=== PATIENT | female | born 1990 | race Caucasian/White ===

== ENCOUNTER 2017-10-26 20:34 | Inpatient (IN) ==
[2017-10-26] MEDS: LACTATED RINGERS 1,000 ML IV SCH ×2 (20:45→21:28)
[2017-10-26] MEDS ORDERED: ACETAMINOPHEN 325 MG TABLET PO PRN (20:47)
[2017-10-26] MEDS ORDERED: MEPERIDINE 50 MG/1 ML VIAL IV PRN (20:47)
[2017-10-26] MEDS ORDERED: ONDANSETRON 4 MG/2 ML VIAL IV PRN (20:47)
[2017-10-26] MEDS ORDERED: CITRIC ACID/SODIUM CITRATE 30 ML UDCUP PO ONE (20:48)
[2017-10-26] MEDS ORDERED: ePHEDrine 50 MG/ML AMP IV PRN (20:48)
[2017-10-26] MEDS ORDERED: FAMOTIDINE 20 MG/2 ML VIAL IV ONE (20:48)
[2017-10-26] MEDS ORDERED: OXYTOCIN/LR 20 UNIT/1,000 ML BAG IV SCH (21:00)
[2017-10-26 21:11] LABS: Basophils % 0.2 % (0.0-0.8); Eosinophils # 0.1 10*3/uL (0.0-0.87); Eosinophils % 0.7 % (0.00-10.9); Hematocrit 31.5 VOL% (35.7-47.0); Hemoglobin 10.7 GM/DL (12.0-16.0); Immature Granulocytes % 1.5 %; Immature Granulocytes Absolute 0.16 #; Lymphocytes # 1.4 10*3/uL (1.4-4.0); Lymphocytes % 13.1 % (21.3-54.2); Mean Corpuscular Hemoglobin 32 PG (27-34); Mean Corpuscular Volume 93.8 FL (87-102); Mean Platelet Volume 10.6 FL (9.6-12.0); Monocytes # 0.6 10*3/uL (0.11-0.8); Neutrophils # 8.4 10*3/uL (1.4-7.4); Neutrophils % 78.5 % (38.7-73.9); Platelet Count 161 T/CUMM (130-400); Red Blood Count 3.36 MC/CUMM (3.8-5.5); Red Cell Distribution Width 13.7 % (9.3-17.3); White Blood Count 10.6 T/CUMM (4-12)
[2017-10-26] MEDS ORDERED: fentaNYL 2 MCG/ROPIV 0.2% EPID 150 ML EPIDURAL SCH (21:30)
[2017-10-26 21:40] LABS: Alanine Aminotransferase 11 U/L (13-56); Albumin 2.4 G/DL (3.4-5.0); Alkaline Phosphatase 92 U/L (45-117); Aspartate Amino Transferase 13 U/L (0-37); Bilirubin,Total < 0.39 MG/DL (0.2-1.0); Blood Urea Nitrogen 9 MG/DL (7-18); Calcium 8.4 MG/DL (8.5-10.1); Glucose 102 MG/DL (74-106); Osmolality,Calculated 279.3 MOS/KG (273-304); Potassium 3.8 MMOL/L (3.5-5.1); Sodium 141 MMOL/L (136-145); Total Protein 5.3 G/DL (6.4-8.3)
[2017-10-26 22:45] LABS: Apearance,Urine Slightly Hazy (Clear); Bilirubin,Urine Negative (Negative); Blood, Urine Negative (Negative); Glucose,Urine (UA) Negative (Negative); Ketones,Urine Negative (Negative); Nitrite,Urine Negative (Negative); Protein,Urine Negative; Squamous Epithelial Cell,Urine Occasional /HPF (0-10); Urine Color Yellow (Yellow); Urine Specific Gravity 1.009 (1.001-1.035); Urine Urobilinogen < 2.0 EU/DL (0.2-1.0); WBC,Urine 1 /HPF (0-6)
[2017-10-27] MEDS ORDERED: LIDOCAINE 1% 50 ML VIAL ONE (03:14)
[2017-10-27] MEDS ORDERED: miSOPROStol 200 MCG TABLET ONE (03:15)
[2017-10-27] MEDS ORDERED: OXYTOCIN/LR 20 UNIT/1,000 ML BAG IV ONE ×2 (03:15→09:18)
[2017-10-27] MEDS ORDERED: CARBOPROST TROMETHAMINE 250 MCG/ML AMP IM ONE (03:16)
[2017-10-27] MEDS ORDERED: METHYLERGONOVINE 0.2 MG/1 ML AMP ONE (03:16)
[2017-10-27] MEDS ORDERED: HYDROCORTISONE 0.5% CREAM 28.35 GM TUBE TOP PRN (06:25)
[2017-10-27] MEDS ORDERED: IBUPROFEN 800 MG TABLET PO ONE (07:48)
[2017-10-27] MEDS ORDERED: MEASLES/MUMPS/RUBELLA VACCINE 0.5 ML VIAL SUBCUT ONE (09:18)
[2017-10-27] MEDS ORDERED: BENZOCAINE 20%/MENTHOL 0.5% SPRAY 56 GM CAN TOP PRN (09:18)
[2017-10-27] MEDS ORDERED: WITCH HAZEL PADS 100/JAR TOP PRN (09:18)
[2017-10-27] MEDS ORDERED: ACETAMINOPHEN 325 MG TABLET PO PRN (09:18)
[2017-10-27] MEDS ORDERED: ONDANSETRON 4 MG/2 ML VIAL IV PRN (09:18)
[2017-10-27] MEDS ORDERED: oxyCODONE/ACETAMINOPHEN 5-325 MG TABLET PO PRN ×2 (09:18)
[2017-10-27] MEDS ORDERED: LANOLIN 50% CREAM 0.3 OZ TUBE TOP PRN (09:18)
[2017-10-27] MEDS ORDERED: DIPH/TET/ACEL PERT BOOSTER VACCINE 0.5 ML VIAL IM ONE (09:18)
[2017-10-27] MEDS ORDERED: BISACODYL 10 MG SUPP RECTAL PRN (09:18)
[2017-10-27] MEDS ORDERED: HYDROCORTISONE 2.5% RECTAL CREAM 30 GM TUBE TOP PRN (09:18)
[2017-10-27] MEDS ORDERED: RHO(D) IMMUNE GLOBULIN 300 MCG SYRINGE IM ONE (09:18)
[2017-10-27] MEDS: IBUPROFEN 800 MG TABLET PO PRN ×2 (15:17→20:50)
[2017-10-27] MEDS: DOCUSATE SODIUM 100 MG CAPSULE PO SCH ×2 (20:50→22:10)
[2017-10-27] MEDS: LACTATED RINGERS 1,000 ML IV SCH (22:11)
[2017-10-28] MEDS: IBUPROFEN 800 MG TABLET PO PRN ×3 (04:22→20:58)
[2017-10-28 06:07] LABS: Basophils % 0.2 % (0.0-0.8); Eosinophils # 0.1 10*3/uL (0.0-0.87); Eosinophils % 1.2 % (0.00-10.9); Hematocrit 30.6 VOL% (35.7-47.0); Hemoglobin 10.3 GM/DL (12.0-16.0); Immature Granulocytes % 2.1 %; Immature Granulocytes Absolute 0.23 #; Lymphocytes # 1.9 10*3/uL (1.4-4.0); Lymphocytes % 17.6 % (21.3-54.2); Mean Corpuscular HGB Conc 33.7 GM/DL (32-36); Mean Corpuscular Hemoglobin 32 PG (27-34); Mean Corpuscular Volume 95.6 FL (87-102); Mean Platelet Volume 10.8 FL (9.6-12.0); Monocytes # 0.6 10*3/uL (0.11-0.8); Monocytes % 5.7 % (1.7-12.7); Neutrophils # 7.8 10*3/uL (1.4-7.4); Neutrophils % 73.2 % (38.7-73.9); Platelet Count 176 T/CUMM (130-400); Red Cell Distribution Width 13.9 % (9.3-17.3); White Blood Count 10.7 T/CUMM (4-12)
[2017-10-28] MEDS: DOCUSATE SODIUM 100 MG CAPSULE PO SCH ×2 (09:28→20:58)
[2017-10-28] MEDS: FEXOFENADINE 60 MG TABLET PO SCH ×2 (14:38→20:58)
[2017-10-28] MEDS: FLUTICASONE 50 MCG NASAL SPRAY 16 GM BOTTLE BOTH NARES SCH ×2 (14:39→20:58)
[2017-10-29] MEDS: DOCUSATE SODIUM 100 MG CAPSULE PO SCH (08:15)
[2017-10-29] MEDS: FLUTICASONE 50 MCG NASAL SPRAY 16 GM BOTTLE BOTH NARES SCH (08:15)
[2017-10-29] MEDS: FEXOFENADINE 60 MG TABLET PO SCH (08:16)
[2017-10-29] MEDS: IBUPROFEN 800 MG TABLET PO PRN (08:16)
[2017-10-29 08:27] VITALS: BP 127/84
== END 2017-10-29 11:30 | disposition home or self-care (01) | DRG 774 ==
LOC: N.LDOUT 20:34 → N.LD 20:36 → N.OB 10-27 09:17
PROVIDERS: ADMIT Obstetrics & Gynecology; ATTEND Obstetrics & Gynecology

== ENCOUNTER 2020-09-07 15:20 | Observation (INO) ==
[2020-09-07] MEDS ORDERED: SODIUM CHLORIDE 0.9% 1,000 ML IV STA ×2 (15:59→17:06)
[2020-09-07 16:22] LABS: Bilirubin,Urine Negative (Negative); Blood, Urine Negative (Negative); Glucose,Urine (UA) Negative (Negative); Ketones,Urine 20 mg/dL (Negative); Mucus,Urine Occasional /LPF (Occasional); Nitrite,Urine Negative (Negative); Protein,Urine Negative; Squamous Epithelial Cell,Urine Occasional /HPF (0-10); Urine Appearance CLEAR (Clear); Urine Color Straw (Yellow); Urine Specific Gravity 1.006 (1.001-1.035); Urine Urobilinogen < 2.0 EU/DL (0.2-1.0)
[2020-09-07 16:32] LABS: Basophils % 0.2 % (0.0-0.8); Eosinophils % 0.1 % (0.00-10.9); Hematocrit 42.5 VOL% (35.7-47.0); Hemoglobin 14.8 GM/DL (12.0-16.0); Immature Granulocytes % 0.4 %; Immature Granulocytes Absolute 0.05 #; Lymphocytes # 1.1 10*3/uL (1.4-4.0); Lymphocytes % 8.3 % (21.3-54.2); Mean Corpuscular HGB Conc 34.8 GM/DL (32-36); Mean Corpuscular Volume 90.2 FL (87-102); Mean Platelet Volume 10.2 FL (9.6-12.0); Monocytes % 4.5 % (1.7-12.7); Neutrophils % 86.5 % (38.7-73.9); Platelet Count 276 T/CUMM (130-400); Red Blood Count 4.71 MC/CUMM (3.8-5.5); Red Cell Distribution Width 11.6 % (9.3-17.3)
[2020-09-07 16:45] LABS: Albumin 4.5 G/DL (3.4-5.0); Bilirubin,Total 0.4 MG/DL (0.2-1.0); Calcium 8.5 MG/DL (8.5-10.1); Osmolality,Calculated 277.4 MOS/KG (273-304); Total Protein 7.9 G/DL (6.4-8.3)
[2020-09-07 17:10] LABS: Barbiturates Screen,Urine Negative (Negative); Benzodiazepines Screen,Urine Negative (Negative); Cannabinoid Screen,Urine Positive (Negative); Opiate Screen,Urine Negative (Negative); Phencyclidine Screen,Urine Negative (Negative)
[2020-09-07] MEDS ORDERED: DEXTROSE 50% 25 GM/50 ML VIAL IV PRN (19:47)
[2020-09-07] MEDS ORDERED: GLUCAGON 1 MG VIAL IM PRN (19:47)
[2020-09-07 20:15] LABS: Free T4 (Free Thyroxine) 1.11 NG/DL (0.76-1.46)
[2020-09-07] MEDS: PANTOPRAZOLE 40 MG VIAL IV SCH (23:51)
[2020-09-07] MEDS: ENOXAPARIN 40 MG/0.4 ML SYRINGE SUBCUT SCH (23:51)
[2020-09-08 06:38] LABS: Basophils % 0.4 % (0.0-0.8); Eosinophils # 0.1 10*3/uL (0.0-0.87); Eosinophils % 0.9 % (0.00-10.9); Hematocrit 36.1 VOL% (35.7-47.0); Hemoglobin 12.4 GM/DL (12.0-16.0); Immature Granulocytes % 0.3 %; Immature Granulocytes Absolute 0.02 #; Lymphocytes # 2.2 10*3/uL (1.4-4.0); Lymphocytes % 28.3 % (21.3-54.2); Mean Corpuscular HGB Conc 34.3 GM/DL (32-36); Mean Corpuscular Volume 91.4 FL (87-102); Monocytes % 9.3 % (1.7-12.7); Neutrophils % 60.8 % (38.7-73.9); Platelet Count 227 T/CUMM (130-400); Red Blood Count 3.95 MC/CUMM (3.8-5.5); Red Cell Distribution Width 11.8 % (9.3-17.3); White Blood Count 7.6 T/CUMM (4-12)
[2020-09-08 07:13] LABS: Albumin 3.6 G/DL (3.4-5.0); Bilirubin,Total 0.9 MG/DL (0.2-1.0); Calcium 8.2 MG/DL (8.5-10.1); Osmolality,Calculated 278.3 MOS/KG (273-304); Total Protein 6.5 G/DL (6.4-8.3)
[2020-09-08] MEDS: PANTOPRAZOLE 40 MG VIAL IV SCH ×2 (08:44→21:12)
[2020-09-08] MEDS: ENOXAPARIN 40 MG/0.4 ML SYRINGE SUBCUT SCH (21:13)
[2020-09-09] MEDS: PANTOPRAZOLE 40 MG VIAL IV SCH ×2 (09:19→20:33)
[2020-09-09 11:16] LABS: HIV Antigen/Antibody Result Nonreactive (Nonreactive)
[2020-09-09 11:51] LABS: Thyroglob. AB < 1.8 IU/mL (<4.0)
[2020-09-09] MEDS: LACTATED RINGERS 1,000 ML IV SCH (12:10)
[2020-09-09] MEDS ORDERED: propofoL 200 MG/20 ML VIAL IV ONE (13:02)
[2020-09-09] MEDS ORDERED: ONDANSETRON 4 MG/2 ML VIAL ONE (13:02)
[2020-09-09] MEDS ORDERED: LIDOCAINE 2% 5 ML VIAL ONE (13:02)
[2020-09-09] MEDS: ENOXAPARIN 40 MG/0.4 ML SYRINGE SUBCUT SCH (20:33)
[2020-09-10] MEDS: PANTOPRAZOLE 40 MG VIAL IV SCH (08:30)
[2020-09-10] MEDS ORDERED: COSYNTROPIN 0.25 MG VIAL IV ONE (08:30)
[2020-09-10] MEDS ORDERED: SODIUM CHLORIDE 0.45% 1,000 ML IV SCH (08:30)
[2020-09-10] MEDS: LACTATED RINGERS 1,000 ML IV SCH (10:00)
[2020-09-10 13:08] VITALS: BP 127/90
[2020-09-12 11:21] LABS: EBV Nuclear Ag Antibody Positive (Negative); EBV Virus IgG Ab Positive (Negative); EBV Virus IgM Ab Negative (Negative)
== END 2020-09-10 16:47 | disposition home or self-care (01) ==
LOC: EDUNIT# → EDBD → N.TELEN 15:20 → N.ED 15:20 → N.TELEN 23:04
PROVIDERS: ADMIT Internal Medicine; ATTEND Internal Medicine